=== PATIENT | male | born 1945 | race Hispanic/Latino ===

== ENCOUNTER 2016-04-22 15:51 | Emergency (ER) | payer OTHER ==
[2016-04-22] MEDS ORDERED: ACTIVASE ONE (16:06)
[2016-04-22 16:10] LABS: Basophils % (Auto) 0.6 % (0.0-1.8); Eosinophils % (Auto) 0.8 % (0.0-4.3); Hematocrit 43.3 % (35.5-45.6); Hemoglobin 14.9 gm/dl (11.8-15.2); Mean Corpuscular HGB Conc 34 % (32-34); Mean Corpuscular Hemoglobin 32 pg (28-32); Mean Corpuscular Volume 92 fl (84-94); Platelet Count 167 K/mm3 (140-440); Red Blood Count 4.72 M/mm3 (3.65-5.03); Red Cell Distribution Width 13.4 % (13.2-15.2); White Blood Count 7.5 K/mm3 (4.5-11.0)
[2016-04-22] MEDS ORDERED: NACL 0.9% IV ONE (16:11)
[2016-04-22] MEDS ORDERED: ACTIVASE IV ONE ×2 (16:11)
[2016-04-22] MEDS ORDERED: ZOFRAN ONE (16:23)
[2016-04-22] MEDS ORDERED: ZOFRAN IV ONE (16:24)
[2016-04-22 16:26] LABS: Anion Gap 20 mmol/L; BUN/Creatinine Ratio 25.71; Blood Urea Nitrogen 18 mg/dL (9-20); Calcium 8.7 mg/dL (8.4-10.2); Carbon Dioxide 24 mmol/L (22-30); Chloride 99.3 mmol/L (98-107); Glucose 138 mg/dL (75-100); Potassium 3.7 mmol/L (3.6-5.0); Sodium 140 mmol/L (137-145)
--- NOTE | 2016-04-22 16:29 | Cat Scan Report ---
CT HEAD WITHOUT CONTRAST INDICATION: Altered mental status. COMPARISON: None similar at this institution. FINDINGS: Noncontrast head CT repeated for motion and demonstrates approximately 1 cm [id number] midline shift with diffuse right cerebral edema and a large, approximately 7 x 3.8 cm right parietal hematoma/hemorrhagic infarct as on axial series 2, image 34, amongst others. Right lateral ventricle noted effaced/displaced along its posterior extent with mildly prominent size anteriorly. Unremarkable left cerebral hemisphere with left ventricular size within normal limits. Minimal, benign bilateral basal ganglia calcifications. Normal posterior fossa with preserved basilar cisterns. Unremarkable eye globes. Approximately 5 mm leftward nasal septal spur and slight leftward septal bowing. Small bilateral maxillary sinus mucus retention cysts measuring up to 7 mm partially imaged. Mild bilateral ethmoid sinusitis extending into the frontal sinus also noted. Clear sphenoid sinuses and mastoid air cells except for minimal right mastoid air cell opacification inferiorly. Normal calvarium and scalp. Numerous radiopaque dental fillings. CONCLUSION: 1. Large right parietal hemorrhage with associated mass effect and approximately 1 cm [id number] midline shift, as described above. 2. Few other incidental findings, as above. I phoned the above results to Dr. Crawford in the ER, 4:20 PM, 04/22/2016. Thank you for the opportunity to participate in this patient's care.
[2016-04-22] MEDS ORDERED: APRESOLINE IV ONE ×3 (16:32→17:15)
--- NOTE | 2016-04-22 16:32 | Emergency Department Report ---
HPI - General Chief Complaint: Altered Mental Status Time Seen by Provider: 04/22/16 16:09 - HPI HPI: The patient is a 70-year-old male who presents for evaluation of strokelike symptoms. The patient arrives with his . The report that approximately 30 minutes prior to arrival, the patient developed sudden onset of constant headache, generalized, moderate in severity, throbbing in quality, and associated with slurring of his speech, dizziness, change in vision, and mild neck pain. The patient denies fever, head injury, hearing changes, smell or taste changes, paresthesias, facial drooping, seizure-like activity, urine or bowel incontinence or retention. ED Past Medical Hx - Medications Home Medications: Home Medications Medication Instructions Recorded Confirmed Last Taken Type Rosuvastatin Calcium 5 mg PO QHS 04/22/16 04/22/16 Unknown History ED Review of Systems ROS: Stated complaint: SEVERE HEADACHE/BLURRY VISION Other details as noted in HPI Constitutional: denies: fever ENT: denies: throat or neck pain Respiratory: denies: cough, shortness of breath Cardiovascular: denies: chest pain Endocrine: denies unexplained weight loss or gain Gastrointestinal: denies: abdominal pain, nausea Genitourinary: denies: dysuria Musculoskeletal: denies: leg swelling Skin: denies: rash Neurological: reports headache Hematological/Lymphatic: denies: easy bleeding or easy bruising Psych: denies sadness or hopelessness Physical Exam - Physical Exam Vital Signs: Vital Signs 04/22/16 15:55 Temperature 98.3 F Pulse Rate 50 L Respiratory 18 Rate Blood Pressure 156/101 O2 Sat by Pulse 99 Oximetry Physical Exam: General: well-nourished, well-developed, in acute pain Head: Normocephalic, atraumatic Eyes: normal sclera, PERRL, deficit with gaze to left ENT: Mucous membranes are pink and moist Neck: trachea midline, neck supple, No neck stiffness, no cervical adenopathy Respiratory: Breath sounds equal bilaterally, no wheezing, rales, or rhonchi Cardio: S1 and S2 present, no murmurs, rubs, gallops, capillary refill is brisk Abdomen: Normoactive bowel sounds, soft abdomen, no rigidity, no guarding or rebound tenderness Musc: No pitting edema Skin: No rash Neuro: no facial drooping, decreased speech fluency, no pronator drift in the arms or legs, left les-neglect present, coordination deficit in the left upper and lower extremity is present, no sensation or motor deficits present, reflexes 2+ symmetric on DTR testing Psych: Normal affect ED Course Vital Signs 04/22/16 15:55 Temperature 98.3 F Pulse Rate 50 L Respiratory 18 Rate Blood Pressure 156/101 O2 Sat by Pulse 99 Oximetry ED Medical Decision Making - Lab Data Result diagrams: 04/22/16 15:59 04/22/16 15:59 - Medical Decision Making The patient was seen and examined by myself. The patient is placed on a heat and frost insulator helper and continuous pulse ox. On initial evaluation, the patient was found to be in no distress. Evaluation orders were placed. The patient given IV morphine for his pain. CT scan the head reveals a large right parietal intracranial hemorrhage in 1 cm midline shift. The patient given IV hydralazine for elevated blood pressure and head of bed is raised 30. Multiple bedside reassessments performed to assess patient responsiveness to antihypertensives and to reassess patient's neurologic status. The transfer lines at [facility] and [facility] were paged. The patient is reevaluated and found to have decrease in blood pressure to SBP 140s- 160s, and DBP 80s. The on-call neurosurgeon Dr. Fine at [facility] is contacted. She agrees to transfer of the patient. Transfer is arranged. The patient becomes more drowsy but maintains his airway and responsiveness to tactile stimuli. The patient is given diltiazem for seizure prophylaxis. The patient is transferred in critical condition to [facility]. Critical Care Time: Yes Critical care time in (mins) excluding proc time.: 35 (35) Critical care attestation.: Due to the critical nature of this patients presentation, which necessitated multiple bedside assessments, manipulation and supportive measures to prevent further life threatening deterioration, I would like to bill for a total of 35 minutes of critical care time. This was exclusive of any separately billable procedures. Critical Care Time: 35 ED Disposition Clinical Impression: Intracranial hemorrhage, CVA (cerebrovascular accident due to intracerebral hemorrhage) Disposition: DC/TX ANOTHER TYPE HEALTHCARE Is pt being admited?: No Does the pt Need Aspirin: No Condition: Critical Referrals: PRIMARY CARE, [Primary Care Provider] - 3-5 Days Time of Disposition: 16:28
[2016-04-22 16:40] LABS: INR 0.89 (0.87-1.13); Partial Thromboplastin Time 23.1 Sec. (24.2-36.6)
[2016-04-22 16:43] LABS: Creatine Kinase MB 4.1 ng/mL (0.0-4.0)
[2016-04-22 16:44] LABS: Creatine Kinase 157 units/L (55-170)
[2016-04-22] MEDS ORDERED: MORPHINE IV ONE (16:58)
[2016-04-22] MEDS ORDERED: CARDENE DRIP 40 MG/200 ML 40 MG/200 ML BAG IV SCH (17:00)
[2016-04-22] MEDS ORDERED: DILANTIN 1,000 MG in NACL 0.9% 250ML 250 ML IV ONE (17:58)
[2016-04-22 18:17] VITALS: BP 144/81
== END 2016-04-22 18:12 | disposition other institution (70) ==
LOC: ED 15:51
DX: I62.9 Nontraumatic intracranial hemorrhage, unspecified (principal); I61.9 Nontraumatic intracerebral hemorrhage, unspecified
CPT/HCPCS: 36415; 51702; 70450; 80048; 82550; 82553; 82962; 84484; 85025; 85610; 85670; 85730; 93005; 93010; 96365; 96375; 96376; 99291; G0480; J0360; J1165; J2270; J2405; J7050; 80320; J2997